=== PATIENT | female | born 1985 | race African-American/Black ===

== ENCOUNTER 2017-01-10 23:32 | Emergency (ER) | payer MEDICAID ==
[~2017-01-10] VITALS: Ht 152.4 cm; Wt 77.1 kg
[~2017-01-10 23:32] MED LIST: ACETAMINOPHEN-1 EAC1 ORAL; ALBUTEROL SULF8.5 GM INH; AMOXICILLIN500 MG ORAL; AZITHROMYCIN250 MG ORAL; BACTRIM DS TAB1 EAC1 ORAL; CIPROFLOXACIN2.5 ML LEFT EYE; CLINDAMYCIN HC300 MG ORAL; DIFLUCAN100 MG ORAL; DIFLUCAN150 MG PO; FLUCONAZOLE100 MG ORAL; FLUCONAZOLE150 MG ORAL; IBUPROFEN600 MG ORAL; KEFLEX500 MG ORAL; NKM; NORCO 5-325 TA1 EACH ORAL; OFLOXACIN5 ML LEFT EYE; PREDNISONE20 MG ORAL; PROAIR HFA8.5 GM INH; PROMETHEGAN25 MG RC; QVAR7.3 G2 IH; QVAR7.3 GM INH; TAMIFLU75 MG ORAL; TRAMADOL HCL50 MG ORAL; VICODIN 5-5001 EACH ORAL; VICODIN 5-5001 EACH PO
[2017-01-11 00:07] VITALS: BP 121/78
[2017-01-11] MEDS ORDERED: FLUCONAZOLE150 MG ORAL (00:13)
[2017-01-11] MEDS ORDERED: KEFLEX500 MG ORAL (00:13)
--- NOTE | 2017-01-11 00:24 | Emergency Room Report ---
History of Present Illness General Chief Complaint: Earache Source: Patient Present Illness HPI 31YOF with 2-3 days infected left earlobe Has since removed earring No previous infection "pus" from front and back of earlobe No actual inner earache, fever/chills Feels well otherwise Allergies: Coded Allergies: PINEAPPLE (Verified Allergy, 08/27/12) Patient History Past Medical History: none Past Surgical History: none Pertinent Family History: none Social History: Denies: alcohol use, drug use, smoking Last Menstrual Period: UNK Now: No Immunizations: UTD Reviewed Nursing Documentation: PMH: Agreed, PSxH: Agreed Nursing Documentation-PMH Hx Asthma: Yes Review of Systems All Other Systems: negative except mentioned in HPI Physical Exam Vital Signs Date Time Temp Pulse Resp B/P Pulse Ox O2 Delivery O2 Flow Rate FiO2 01/11/17 00:01 97.9 77 16 121/78 98 Sp02 EP Interpretation: reviewed, normal General Appearance: normal inspection, well appearing, no apparent distress, alert Head: atraumatic Eyes: bilateral eye EOMI, bilateral eye PERRL ENT: normal ENT inspection, hearing grossly normal, normal voice, other - Left earlobe: mild ttp, erythema, mild induration. No abscess. No active drainage. Left TM normal Neck: normal inspection, full range of motion, supple, no bony tend Respiratory: normal inspection, lungs clear, normal breath sounds, no respiratory distress, no retraction, no wheezing Cardiovascular #1: regular rate, rhythm, no edema Gastrointestinal: normal inspection, normal bowel sounds, non tender, soft, no guarding, no hernia Genitourinary: no CVA tenderness Musculoskeletal: normal inspection, back normal, normal range of motion, Phyllis' s Sign negative Neurologic: normal inspection, alert, responsive, speech normal Skin: normal inspection, normal color, no rash Medical Decision Making Diagnostic Impression: Primary Impression: Infection of left earlobe ER Course Cellulitis of left earlobe Rx keflex Patient also requested fluconazole PRN yeast infection from taking AbX Dc home Last Vital Signs Date Time Temp Pulse Resp B/P Pulse Ox O2 Delivery O2 Flow Rate FiO2 01/11/17 00:07 97.9 77 16 121/78 98 Status: improved Disposition: HOME, SELF-CARE Scripts Fluconazole (FLUCONAZOLE) 150 Mg Tablet 150 MG ORAL DAILY for yeast infection for 2 Days, #2 TAB 0 Refills Prov: VIVIAN LEIVA M.D. 01/11/17 Cephalexin* (KEFLEX*) 500 Mg Capsule 500 MG ORAL Q6H for 7 Days, #28 CAP 0 Refills Prov: VIVIAN LEIVA M.D. 01/11/17 Patient Instructions: Cellulitis, [id number] VIVIAN LEIVA M.D. Jan 11, 2017 00:24
[2017-01-11 01:32] VITALS: BP 121/78
== END 2017-01-11 00:31 | disposition home or self-care (01) ==
LOC: EMR 23:59
DX: H60.12 Cellulitis of left external ear (principal); J45.909 Unspecified asthma, uncomplicated
CPT/HCPCS: 99284

== ENCOUNTER 2017-10-15 07:46 | Emergency (ER) | payer MEDICAID ==
[~2017-10-15] VITALS: Ht 152.4 cm; Wt 79.4 kg
[2017-10-15 08:00] VITALS: BP 124/95
[2017-10-15] MEDS ORDERED: Ipratropium 0.02% Inh Soln 2.5ml UD HHN ONE (08:00)
[2017-10-15] MEDS ORDERED: Solu-MEDROL 125mg Inj IVP ONE (08:00)
--- NOTE | 2017-10-15 08:05 | Emergency Room Report ---
History of Present Illness General Chief Complaint: Upper Respiratory Illness Source: Patient Present Illness HPI The patient presents with cough, headache and wheezing. She's been using her inhaler. She is not on her steroid inhaler at this time. She denies any fevers or chills. She's felt dizzy with standing. She feels her inhalers not working. Headache is 8/10 and pounding worse when she coughs. There is no weakness. Phlegm has no color to it. This is not her worst attack. She's on her period now. She doesn't believe she is . No nausea, vomiting, diarrhea or dysuria. She denies any significant chest pain at this time. Allergies: Coded Allergies: HYDROCODONE (Verified Allergy, Unknown, 10/15/17) PINEAPPLE (Verified Allergy, Unknown, 10/15/17) Patient History Past Medical History: see triage record Social History: Denies: smoking Social History Narrative works produce at [employer] Last Menstrual Period: 10/11/17 Reviewed Nursing Documentation: PMH: Agreed; PSxH: Agreed Nursing Documentation-PMH Past Medical History: No History, Except For Hx Asthma: Yes Review of Systems All Other Systems: negative except mentioned in HPI Physical Exam Vital Signs Date Time Temp Pulse Resp B/P (MAP) Pulse Ox O2 Delivery O2 Flow Rate FiO2 10/15/17 07:50 98.3 97 18 141/93 100 Room Air 98.2 Sp02 EP Interpretation: reviewed, normal General Appearance: well appearing, no apparent distress, GCS 15 Head: normocephalic Eyes: bilateral eye normal inspection, bilateral eye PERRL ENT: moist mucus membranes Neck: supple Respiratory: wheezing, expiration Cardiovascular #1: regular rate, rhythm Cardiovascular #2: 2+ radial (R) Gastrointestinal: normal inspection, normal bowel sounds, non tender, no mass, non-distended Musculoskeletal: back normal, gait/station normal, normal range of motion Neurologic: alert, oriented x3, grossly normal Psychiatric: mood/affect normal Skin: normal inspection, warm/dry Medical Decision Making Diagnostic Impression: Primary Impression: Asthma attack Qualified Codes: J45.41 - Moderate persistent asthma with (acute) exacerbation ER Course The patient presents with wheezing and cough with headache. Differential includes pneumonia, asthma exacerbation, bronchitis, viral upper respiratory illness. History and physical against PE. She's been using her inhaler and without help. She needs steroids and breathing treatments here. We'll also be performing labs including magnesium. This is not her worst attack and she's never been intubated. However she's been progressively using her inhaler and it 's not been working. Analgesics will be given for the headache. CXR no infiltrates. Labs with elevated WBC. Improved with treatment. Patient stable for outpatient observation and treatment. Laboratory Tests Test 10/15/17 08:10 10/15/17 10:10 White Blood Count 12.2 K/UL (4.8-10.8) H Red Blood Count 4.55 M/UL (4.20-5.40) Hemoglobin 12.6 G/DL (12.0-16.0) Hematocrit 39.0 % (37.0-47.0) Mean Corpuscular Volume 86 FL (80-99) Mean Corpuscular Hemoglobin 27.7 PG (27.0-31.0) Mean Corpuscular Hemoglobin Concent 32.2 G/DL (32.0-36.0) Red Cell Distribution Width 12.9 % (11.6-14.8) Platelet Count 341 K/UL (150-450) Mean Platelet Volume 7.5 FL (6.5-10.1) Neutrophils (%) (Auto) 80.3 % (45.0-75.0) H Lymphocytes (%) (Auto) 12.8 % (20.0-45.0) L Monocytes (%) (Auto) 4.8 % (1.0-10.0) Eosinophils (%) (Auto) 1.4 % (0.0-3.0) Basophils (%) (Auto) 0.8 % (0.0-2.0) Sodium Level 140 MMOL/L (136-145) Potassium Level 3.8 MMOL/L (3.5-5.1) Chloride Level 105 MMOL/L (98-107) Carbon Dioxide Level 25 MMOL/L (21-32) Anion Gap 10 mmol/L (5-15) Blood Urea Nitrogen 11 mg/dL (7-18) Creatinine 0.8 MG/DL (0.55-1.30) Estimate Glomerular Filtration Rate > 60 mL/min (>60) Glucose Level 139 MG/DL (74-106) H Calcium Level 9.1 MG/DL (8.5-10.1) Magnesium Level 1.9 MG/DL (1.8-2.4) Total Bilirubin 0.3 MG/DL (0.2-1.0) Aspartate Amino Transferase (AST) 35 U/L (15-37) Alanine Aminotransferase (ALT) 62 U/L (12-78) Alkaline Phosphatase 87 U/L (46-116) Total Protein 7.8 G/DL (6.4-8.2) Albumin 3.7 G/DL (3.4-5.0) Globulin 4.1 g/dL Albumin/Globulin Ratio 0.9 (1.0-2.7) L Urine Color Pale yellow Urine Appearance Clear Urine pH 5 (4.5-8.0) Urine Specific [place] 1.020 (1.005-1.035) Urine Protein Negative (NEGATIVE) Urine Glucose (UA) Negative (NEGATIVE) Urine Ketones Negative (NEGATIVE) Urine Occult Blood 2+ (NEGATIVE) H Urine Nitrite Negative (NEGATIVE) Urine Bilirubin Negative (NEGATIVE) Urine Urobilinogen Normal MG/DL (0.0-1.0) Urine Leukocyte Esterase Negative (NEGATIVE) Urine RBC 2-4 /HPF (0 - 2) H Urine WBC 0-2 /HPF (0 - 2) Urine Squamous Epithelial Cells Few /LPF (NONE/OCC) Urine Bacteria Occasional /HPF (NONE) Urine HCG, Qualitative Negative (NEGATIVE) Rhythm Strip Diag. Results EP Interpretation: yes Rhythm: NSR, no PVC's, no ectopy Chest X-Ray Diagnostic Results Chest X-Ray Diagnostic Results : Chest X-Ray Ordered: Yes # of Views/Limited/Complete: 1 View Indication: Shortness of Breath EP Interpretation: Yes Interpretation: no consolidation, no effusion, no pneumothorax, no acute cardiopulmonary disease Impression: No acute disease Electronically Signed by: Electronically signed by Edwardo Duran MD Last Vital Signs Date Time Temp Pulse Resp B/P (MAP) Pulse Ox O2 Delivery O2 Flow Rate FiO2 10/15/17 12:53 98.3 82 16 105/93 99 Room Air 98.3 Status: improved Disposition: HOME, SELF-CARE Condition: Improved Scripts Acetaminophen (Tylenol) 325 Mg Tablet 650 MG ORAL Q6H PRN for Prn Pain/Headache/Temp > 101, #20 TAB 0 Refills Prov: Edwardo Duran M.D. 10/15/17 Prednisone* (PREDNISONE*) 20 Mg Tablet 40 MG ORAL DAILY, #10 TAB Prov: Edwardo Duran M.D. 10/15/17 Beclomethasone Dipropionate 40MCG Oral Inh (QVAR 40*) 7.3 Gm Aer.w.adap 2 PUFFS INH TWICE A DAY, #1 GM 0 Refills Prov: Edwardo Duran M.D. 10/15/17 Albuterol Sulfate* (ALBUTEROL SULFATE MDI*) 8.5 Gm Hfa.aer.ad 2 PUFF INH Q6H, #1 EA 0 Refills Prov: Edwardo Duran M.D. 10/15/17 Edwardo Duran M.D. October 15, 2017 08:05
[2017-10-15] MEDS: Albuterol ud Inhalation HHN SCH ×3 (08:14→09:09)
[2017-10-15 08:36] LABS: BASOPHILS % (AUTO) 0.8 % (0.0-2.0); EOSINOPHILS % (AUTO) 1.4 % (0.0-3.0); HEMOGLOBIN 12.6 G/DL (12.0-16.0); LYMPHOCYTES % (AUTO) 12.8 % (20.0-45.0); MEAN CORPUSCULAR VOLUME 86 FL (80-99); MONOCYTES % (AUTO) 4.8 % (1.0-10.0); NEUTROPHILS % (AUTO) 80.3 % (45.0-75.0); PLATELET COUNT 341 K/UL (150-450); RED BLOOD COUNT 4.55 M/UL (4.20-5.40); RED CELL DISTRIBUTION WIDTH 12.9 % (11.6-14.8); WHITE BLOOD COUNT 12.2 K/UL (4.8-10.8)
[2017-10-15 08:53] LABS: ALANINE AMINOTRANSFERASE 62 U/L (12-78); ALBUMIN 3.7 G/DL (3.4-5.0); ALBUMIN/GLOBULIN RATIO 0.9 (1.0-2.7); ALKALINE PHOSPHATASE 87 U/L (46-116); ASPARTATE AMINO TRANSFERASE 35 U/L (15-37); BILIRUBIN,TOTAL 0.3 MG/DL (0.2-1.0); BLOOD UREA NITROGEN 11 mg/dL (7-18); CALCIUM 9.1 MG/DL (8.5-10.1); CHLORIDE 105 MMOL/L (98-107); CREATININE 0.8 MG/DL (0.55-1.30); POTASSIUM 3.8 MMOL/L (3.5-5.1); SODIUM 140 MMOL/L (136-145)
[2017-10-15 09:05] LABS: CARBON DIOXIDE 25 MMOL/L (21-32)
[2017-10-15 09:16] LABS: ANION GAP 10 mmol/L (5-15)
[2017-10-15 10:00] VITALS: BP 105/93
[2017-10-15 10:53] LABS: APPEARANCE,URINE CLEAR; BILIRUBIN, URINE NEGATIVE (NEGATIVE); COLOR,URINE PALE YELLOW; GLUCOSE, URINE (UA) NEGATIVE (NEGATIVE); KETONES,URINE NEGATIVE (NEGATIVE); LEUKOCYTE ESTERASE ,URINE NEGATIVE (NEGATIVE); NITRITE,URINE NEGATIVE (NEGATIVE); PH,URINE 5 (4.5-8.0); PROTEIN,URINE NEGATIVE (NEGATIVE); UROBILINOGEN,URINE NORMAL MG/DL (0.0-1.0)
--- NOTE | 2017-10-15 11:03 | Diagnostic Imaging Report ---
Indication: Dyspnea Comparison: 02/16/2014 A single view chest radiograph was obtained. Findings: Cardiomediastinal appearance is within normal limits for age. Pulmonary vascularity is appropriate. The diaphragmatic contour is smooth and costophrenic angles are sharp. No pleural effusions are identified. The bones are unremarkable. Impression: No acute findings
[2017-10-15] MEDS ORDERED: QVAR7.3 GM INH (12:14)
[2017-10-15] MEDS ORDERED: PREDNISONE20 MG ORAL (12:14)
[2017-10-15] MEDS ORDERED: ALBUTEROL SULF8.5 GM INH (12:14)
[2017-10-15] MEDS ORDERED: TYLENOL325 MG ORAL (12:14)
[2017-10-15 12:53] VITALS: BP 105/93
== END 2017-10-15 12:54 | disposition home or self-care (01) ==
LOC: EMR 08:02
DX: J45.41 Moderate persistent asthma with (acute) exacerbation (principal)
CPT/HCPCS: 36415; 71045; 80053; 81003; 81025; 83735; 85025; 94640; 94664; 96374; 96375; 99284; J2930

== ENCOUNTER 2018-04-14 07:35 | Emergency (ER) | payer MEDICAID ==
[~2018-04-14] VITALS: Ht 152.4 cm; Wt 80.3 kg
[~2018-04-14 07:35] MED LIST changes: +TYLENOL325 MG ORAL
[2018-04-14 07:58] VITALS: BP 120/67
--- NOTE | 2018-04-14 08:09 | Emergency Room Report ---
History of Present Illness General Chief Complaint: Chest Pain Source: Patient, Medical Record Present Illness HPI Patient presents reports that after drinking a red bull started feeling some palpitation sensation while she was at work also noticed that while she was lifting certain things she would have pain to the left mid sternal chest area Also any time moving her left arm upward she had similar pain in the same location She reports that after she started having palpitation sensation she had a feeling of shortness of breath Those feelings have resolved denies any back or flank pain denies any vomiting denies any diaphoresis denies any pleurisy Feels improved at this time Allergies: Coded Allergies: HYDROCODONE (Verified Allergy, Unknown, 04/14/18) PINEAPPLE (Verified Allergy, Unknown, 04/14/18) Patient History Past Medical History: see triage record Pertinent Family History: none Last Menstrual Period: Mar 2018 Reviewed Nursing Documentation: PMH: Agreed; PSxH: Agreed Nursing Documentation-PM Past Medical History: No History, Except For Hx Asthma: Yes Review of Systems All Other Systems: negative except mentioned in HPI Physical Exam Vital Signs Date Time Temp Pulse Resp B/P (MAP) Pulse Ox O2 Delivery O2 Flow Rate FiO2 04/14/18 07:39 98.1 69 16 123/75 100 Room Air 04/14/18 07:56 100 Sp02 EP Interpretation: reviewed, normal General Appearance: well appearing, no apparent distress Head: normocephalic, atraumatic Eyes: bilateral eye PERRL, bilateral eye EOMI ENT: hearing grossly normal, normal pharynx, TMs + canals normal, uvula midline Neck: full range of motion, supple, no meningismus, no bony tend Respiratory: lungs clear, normal breath sounds, no rhonchi, no respiratory distress, no retraction, no accessory muscle use Cardiovascular #1: normal peripheral pulses, regular rate, rhythm, no edema, no gallop, no JVD, no murmur, other - Patient also pinpoints the discomfort to the left lateral aspect of the midsternal region and reproduce the pain by pushing that area, Gastrointestinal: normal bowel sounds, non tender, soft, no mass, no organomegaly, non-distended, no guarding, no hernia, no pulsatile mass, no rebound Genitourinary: no CVA tenderness Musculoskeletal: normal inspection Neurologic: oriented x3, responsive, marine erector III-XII nml as tested, motor strength/ tone normal, sensory intact Psychiatric: mood/affect normal Skin: normal color, no rash, warm/dry, palpation normal Lymphatic: normal inspection, no adenopathy Medical Decision Making Diagnostic Impression: Primary Impression: Chest pain ER Course Multiple differentials considered Patient has significant musculoskeletal consideration with her presentation also the initial red bull intake seems to have had some pathology to this EKG was obtained for evaluation patient has requested to not have any caffeinated intake And requires close follow-up EKG Diagnostic Results Rate: normal Rhythm: NSR ST Segments: no acute changes Rhythm Strip Diag. Results EP Interpretation: yes Rate: 77 Rhythm: NSR, no PVC's, no ectopy Last Vital Signs Date Time Temp Pulse Resp B/P (MAP) Pulse Ox O2 Delivery O2 Flow Rate FiO2 04/14/18 07:58 97.6 76 16 120/67 100 Room Air 04/14/18 07:56 100 Status: improved Disposition: HOME, SELF-CARE Condition: Stable Departure Forms: Return to Work Return to Work in (Days): 1 Return to Work Date: Apr 15, 2018 Patient Instructions: Nonspecific Chest Pain Additional Instructions: Patient is provided with the discharge instructions notified to follow up with primary doctor in the next 2-3 days otherwise return to the er with any worsening symptoms. Please note that this report is being documented using [employer] technology. This can lead to erroneous entry secondary to incorrect interpretation by the dictating instrument. Crystal Lee DO Apr 14, 2018 08:09
== END 2018-04-14 08:53 | disposition home or self-care (01) ==
LOC: EMR 08:17
DX: R07.89 Other chest pain (principal); J45.909 Unspecified asthma, uncomplicated; Z88.6 Allergy status to analgesic agent
CPT/HCPCS: 99283

== ENCOUNTER 2018-12-16 20:41 | Emergency (ER) | payer MEDICAID ==
[~2018-12-16] VITALS: Ht 152.4 cm; Wt 78.0 kg
--- NOTE | 2018-12-16 21:15 | NUR ---
ED Nurse Note: RECIEVED PT FROM HOME, WITH C/O RIGHT ARM AND LEFT WRIST PAIN AND BILAT LEG PAIN, DENIES INJURY, STATES HAS CARPUL TUNNELS, PT DENIES ANY OTHER COMPLAINTS OR DISCOMFORTS, PAIN RATED AT 10/10.
[2018-12-16 22:10] VITALS: BP 129/77
--- NOTE | 2018-12-16 22:25 | Emergency Room Report ---
History of Present Illness General Chief Complaint: Pain Source: Patient, Medical Record Present Illness HPI 33-year-old female recently diagnosed with carpal tunnel 12/05/2018 presents with right wrist pain, numbness, and tingling, aggravated with movement alleviated with rest, she denies any other symptoms, she describes the pain as achy. Allergies: Coded Allergies: HYDROCODONE (Verified Allergy, Unknown, 04/14/18) PINEAPPLE (Verified Allergy, Unknown, 04/14/18) Patient History Past Medical History: see triage record Last Menstrual Period: 12/09/18 Now: No Reviewed Nursing Documentation: PMH: Agreed; PSxH: Agreed Nursing Documentation-PMH Hx Asthma: Yes Review of Systems All Other Systems: negative except mentioned in HPI Physical Exam Vital Signs Date Time Temp Pulse Resp B/P (MAP) Pulse Ox O2 Delivery O2 Flow Rate FiO2 12/16/18 21:02 98.1 72 16 137/82 (100) 100 Room Air Sp02 EP Interpretation: reviewed, normal General Appearance: well appearing, no apparent distress, alert Head: normocephalic, atraumatic Eyes: bilateral eye PERRL, bilateral eye EOMI ENT: uvula midline, moist mucus membranes Neck: supple, thyroid normal, supple/symm/no masses Respiratory: lungs clear, no respiratory distress, no retraction, no accessory muscle use Cardiovascular #1: normal peripheral pulses, regular rate, rhythm, no edema, no gallop, no murmur Gastrointestinal: non tender, soft, no guarding, no rebound Musculoskeletal: other - Right hand, Phalen's positive, tapping on the medial aspect elicits numbness and tingling, 5 out of 5 strength ampoule filler, sensation grossly intact Neurologic: alert, oriented x3 Psychiatric: mood/affect normal Skin: no rash, warm/dry Medical Decision Making Diagnostic Impression: Primary Impression: Carpal tunnel syndrome of right wrist ER Course 33 year old female presents with most likely continued carpal tunnel symptoms, patient counseled to have wrist splints at night. Light duty. Return precautions discussed follow-up with pcp. Last Vital Signs Date Time Temp Pulse Resp B/P (MAP) Pulse Ox O2 Delivery O2 Flow Rate FiO2 12/16/18 21:02 98.1 72 16 137/82 (100) 100 Room Air Disposition: HOME, SELF-CARE Condition: Stable Referrals: [facility]ERRING ([facility] Departure Forms: Return to Work Return to Work in (Days): 7 Patient Instructions: Carpal Tunnel Release, Carpal Tunnel Syndrome, Easy-to- Read Additional Instructions: The patient was provided with discharge instructions, notified to follow-up with a primary care doctor and or specialist in the next 24-48 hours, and to return to the ED if they have worsening of their symptoms. Please note that this report is being documented using [employer] technology. This can lead to erroneous entry secondary to incorrect interpretation by the dictating instrument. Roman Tarango MD Dec 16, 2018 22:25
[2018-12-16 22:30] VITALS: BP 129/77
--- NOTE | 2018-12-16 22:30 | NUR ---
ED Nurse Note: PT BEING D/C TO HOME, GIVEN AFTER CARE INSTRUCTIONS AND F/U INFO, PT ANGRILY EXPRESSING PAIN LEVEL REMAINS AT 10/10 AND MD WILL NOT GIVEN FURTHER MEDS, PT SNATCHED FORMS FROM STAFF AND LEFT DEPARTMENT, NAD NOTED.
== END 2018-12-16 22:30 | disposition home or self-care (01) ==
LOC: EMR 20:58
DX: G56.01 Carpal tunnel syndrome, right upper limb (principal); Z88.6 Allergy status to analgesic agent; Z91.018 Allergy to other foods
CPT/HCPCS: 81025; 99283

== ENCOUNTER 2018-12-27 04:01 | Emergency (ER) | payer MEDICAID ==
[~2018-12-27] VITALS: Ht 152.4 cm; Wt 82.6 kg
[2018-12-27 04:10] VITALS: BP 121/70
--- NOTE | 2018-12-27 04:10 | NUR ---
ED Nurse Note: PT WALKED IN C/O RIGHT HAND SWELLING AND SHARP PAIN SINCE THIS MORNING. NO RECENT INJURY.
--- NOTE | 2018-12-27 04:39 | Diagnostic Imaging Report ---
EXAM: XR Right Wrist CLINICAL HISTORY: JOLENE TECHNIQUE: X-ray right wrist. COMPARISON: No relevant prior studies available. FINDINGS/IMPRESSION: 3 views right wrist. There is some obliquity on the PA view. No acute fracture or dislocation. Suggestion of soft tissue swelling. If there is snuffbox tenderness/suspicion for occult fracture, suggest immobilization and repeat imaging in [address]
--- NOTE | 2018-12-27 05:00 | NUR ---
ER DISCHARGE NOTE: Patient is cleared to be discharged per ERMD, pt is aox4, on room air, with stable vital signs. pt was given dc and prescription instructions, pt was able to verbalize understanding, pt id band removed. pt is able to ambulate with steady gait. pt took all belongings.
[2018-12-27 05:08] VITALS: BP 121/70
--- NOTE | 2018-12-29 13:57 | Emergency Room Report ---
History of Present Illness General Chief Complaint: Pain Source: Patient Present Illness HPI 33-year-old female presents ED complaining of right wrist pain. States that she was diagnosed with carpal tunnel due to injury at work. Was placed in a wrist splint. States that she was advised by Workmen's [employer]. doctor not to wear the wrist splint at night and states she notices on and off swelling. States she is waiting for referral to hand/Ortho. Pain is throbbing, 7 out of 10, nonradiating. Denies any fall. No other aggravating relieving factors. denies any other associated symptoms Allergies: Coded Allergies: HYDROCODONE (Verified Allergy, Unknown, 04/14/18) PINEAPPLE (Verified Allergy, Unknown, 04/14/18) Patient History Past Medical History: asthma Past Surgical History: none Pertinent Family History: none Social History: Denies: smoking, alcohol use, drug use Now: No Immunizations: UTD Reviewed Nursing Documentation: PMH: Agreed; PSxH: Agreed Nursing Documentation-PMH Past Medical History: No History, Except For Hx Asthma: Yes Review of Systems All Other Systems: negative except mentioned in HPI Physical Exam Vital Signs Date Time Temp Pulse Resp B/P (MAP) Pulse Ox O2 Delivery O2 Flow Rate FiO2 12/27/18 04:04 98.1 75 19 121/70 (87) 100 Room Air Sp02 EP Interpretation: reviewed, normal General Appearance: no apparent distress, alert, GCS 15, non-toxic Head: normocephalic Eyes: bilateral eye normal inspection, bilateral eye PERRL ENT: normal ENT inspection Neck: normal inspection Respiratory: normal inspection Cardiovascular #1: normal inspection Gastrointestinal: normal inspection Rectal: deferred Genitourinary: no CVA tenderness Musculoskeletal: swelling - R wrist Neurologic: alert, oriented x3, responsive, motor strength/tone normal, sensory intact, speech normal Psychiatric: normal inspection Skin: no rash Lymphatic: normal inspection Procedures Splinting Splinting : Consent: Verbal Pre-Made Type: velcro Splint: volar Pre-Proc Neuro Vasc Exam: normal Post-Proc Neuro Vasc Exam: normal Patient Tolerated: Well Complications: None Medical Decision Making Diagnostic Impression: Primary Impression: Wrist pain Qualified Codes: M25.531 - Pain in right wrist ER Course Hospital Course 33-year-old female presents ED with recurrent wrist pain and swelling. Diagnosed with carpal tunnel. Differential diagnoses include: Fracture, dislocation, sprain, contusion Clinical course Patient placed on stretcher. After initial history and physical, I ordered xrays R wrist Xrays read shows no acute fracture/dislocation. placed in volar splint discussed findings with patient. Patient encouraged to use wrist splint especially at night. Will provide orthopedic referrals. Diagnosis - wrist pain Stable and discharged to home. Followup with PMD/ortho. Return to ED if symptoms recur or worsen Other X-Ray Diagnostic Results Other X-Ray Diagnostic Results : X-Ray ordered: R wrist # of Views/Limited Vs Complete: 3 View Indication: Pain EP Interpretation: Yes Interpretation: no dislocation, no soft tissue swelling, no fractures Impression: No acute disease Electronically Signed by: Electronically signed by Shay Catalan MD Last Vital Signs Date Time Temp Pulse Resp B/P (MAP) Pulse Ox O2 Delivery O2 Flow Rate FiO2 12/27/18 05:08 98.1 75 19 121/70 100 Room Air Status: improved Disposition: HOME, SELF-CARE Condition: Stable Referrals: NON PHYSICIAN (PCP) [facility] Open 24 hour /7 days a week by Appointment Only [address] [facility] [address] Departure Forms: Return to Work Return to Work Date: Dec 29, 2018 Work Restrictions: No Heavy Lifting Patient Instructions: Carpal Tunnel Syndrome, [id number] Shay Catalan MD Dec 29, 2018 13:57
== END 2018-12-27 05:05 | disposition home or self-care (01) ==
LOC: EMR 04:16
DX: M25.531 Pain in right wrist (principal); Z88.6 Allergy status to analgesic agent; Z91.018 Allergy to other foods
CPT/HCPCS: 29125; 99283